=== PATIENT | female | born 1995 | race Caucasian/White ===

== ENCOUNTER 2017-03-11 12:42 | Emergency (ER) | payer OTHER ==
[2017-03-11 12:50] VITALS: BP 113/66; PULSE 65; RESP 19; TEMP 98.8; O2SAT 100
[2017-03-11] MEDS ORDERED: Sodium Chloride 0.9% 1,000 ML IV STA (14:42)
--- NOTE | 2017-03-11 14:55 | ED PDOC ---
HPI: General Adult Time Seen by Provider: 03/11/17 14:08 Chief Complaint (Nursing): Abdominal Pain History Per: Patient Additional Complaint(s): Pt. states for the past 8 days she's had constant vaginal bleeding which worsened over the past 2 days. Reports that bleeding has been heavy and she has been using 4 pads per day. States that she had similar occurrence 2 months ago but had no pain. Further states that her period is usually irregular. States that she was getting her period every 5 months. Denies weakness, hx of anemia, abdominal pain, N/V/D, fever, dysuria, hematuria. Past Medical History Reviewed: Historical Data, Nursing Documentation, Vital Signs Vital Signs: Last Vital Signs Temp 98.8 F 03/11/17 12:47 Pulse 65 03/11/17 12:47 Resp 19 03/11/17 12:47 BP 113/66 03/11/17 12:47 Pulse Ox 100 03/11/17 14:56 - Family History Family History: States: No Known Family Hx - Immunization History Hx Tetanus Toxoid Vaccination: No Hx Influenza Vaccination: No Hx Pneumococcal Vaccination: No - Home Medications Home Medications: Ambulatory Orders Medication Instructions Recorded Albuterol HFA [Ventolin HFA 90 1 puff IH QID PRN #1 puff 11/21/15 mcg/actuation (8 g)] Naproxen [Naprosyn] 1 tab PO BID PRN #25 tab 11/21/15 Oxymetazoline 0.05% [Oxymetazoline 2 puff NS BID PRN #1 bottle 11/21/15 HCl 30 Ml] Norgestrel-Ethinyl Estradiol 1 each PO DAILY #28 tablet 03/11/17 [[id number] Tablet] - Allergies Allergies/Adverse Reactions: Allergies Allergy/AdvReac Type Severity Reaction Status Date / Time No Known Allergies Allergy Verified 11/21/15 10:33 Review of Systems ROS Statement: Except As Marked, All Systems Reviewed And Found Negative Genitourinary Female: Positive for: Vaginal Bleeding, Pelvic Pain Physical Exam - Reviewed Nursing Documentation Reviewed: Yes Vital Signs Reviewed: Yes - Physical Exam Appears: Positive for: Well, Non-toxic, No Acute Distress Head Exam: Positive for: ATRAUMATIC, NORMAL INSPECTION, NORMOCEPHALIC Skin: Positive for: Normal Color, Warm. Negative for: Rash Eye Exam: Positive for: EOMI, Normal appearance, PERRL ENT: Positive for: Normal ENT Inspection Neck: Positive for: Normal, Painless ROM Cardiovascular/Chest: Positive for: Regular Rate, Rhythm Respiratory: Positive for: CNT, Normal Breath Sounds Gastrointestinal/Abdominal: Positive for: Normal Exam, Soft. Negative for: Tenderness (including pelvis) Back: Positive for: Normal Inspection. Negative for: L CVA Tenderness, R CVA Tenderness Extremity: Positive for: Normal ROM Neurologic/Psych: Positive for: Alert, Oriented - Laboratory Results Result Diagrams: 03/11/17 15:05 03/11/17 15:05 - ECG O2 Sat by Pulse Oximetry: 100 - Progress ED Course And Treament: Labs ordered. Toradol 15mg IV given. IV NS bolus given. Pelvic US: 2 cm complex right ovarian cyst with internal echoes common nonspecific. Possible hemorrhagic cyst. Small amount of fluid in cul-de-sac, nonspecific. No additional abnormality. On re-evaluation, pt. reports feeling much better. No tenderness to abd or pelvis. Case d/w Dr. Kuhn who agrees with care and reports that pt. can be prescribed 1 month supply of Lo Ovral. Pt. informed of plan and instructed to f[facility]. Disposition - Clinical Impression Clinical Impression: Dysfunctional uterine bleeding, Ovarian cyst - Patient ED Disposition Is Patient to be Admitted: No - Disposition [facility]errals[facility] [[facility]] [facility] [Outside] Disposition: Routine/Home Disposition Time: 18:30 Condition: STABLE Prescriptions: Norgestrel-Ethinyl Estradiol [[id number] Tablet] 1 each PO DAILY #28 tablet Instructions: Dysfunctional Uterine Bleeding (ED), Ovarian Cyst (ED)
[2017-03-11 15:21] LABS: BASO # 0.1 K/uL (0.0-0.2); EOS # 0.4 K/uL (0.0-0.7); EOS % 7.3 % (0.0-4.0); LYMPH # 2.3 K/uL (1.0-4.3); LYMPH % 40.8 % (20.0-40.0); MEAN CELL VOLUME 80.6 fl (81.0-99.0); MEAN CORPUSCULAR HGB CONC 32.2 g/dL (33.0-37.0); MEAN PLATELET VOLUME 8.4 fl (7.2-11.7); MONO # 0.5 K/uL (0.0-0.8); MONO % 8.2 % (0.0-10.0); NEUT # 2.4 K/uL (1.8-7.0); NEUT % 42.7 % (50.0-75.0); NRBC % 0.1 % (0.0-0.0); RBC 4.23 Mil/uL (3.80-5.20); RED CELL DISTRIBUTION WIDTH 14.1 % (11.5-14.5); WHITE BLOOD COUNT 5.6 K/uL (4.8-10.8)
[2017-03-11 15:41] LABS: ALB/GLOB RATIO 1.3 (1.0-2.1); ALBUMIN 4.1 g/dL (3.5-5.0); ALT/SGPT 29 U/L (9-52); AST/SGOT 34 U/L (14-36); BLOOD UREA NITROGEN 8 mg/dl (7-17); CALCIUM 9.3 mg/dL (8.4-10.2); GFR AFRICAN-AMERICAN > 60; GFR NON-AFRICAN AMERICAN > 60
[2017-03-11 16:12] LABS: SQUAMOUS EPITHIAL 3 /hpf (0-5); URINE BACTERIA FEW (<OCC); URINE BILIRUBIN NEGATIVE (NEGATIVE); URINE BLOOD LARGE (NEGATIVE); URINE CLARITY CLOUDY (Clear); URINE COLOR AMBER (YELLOW); URINE GLUCOSE (UA) NEG (Normal); URINE LEUKOCYTE ESTERASE NEG Leu/uL (Negative); URINE NITRATE NEGATIVE (NEGATIVE); URINE PROTEIN 100 mg/dL (NEGATIVE); URINE UROBILINOGEN 0.2-1.0 mg/dL (0.2-1.0)
[2017-03-11 16:46] LABS: INR 1.2 (0.9-1.2); PARTIAL THROMBOPLASTIN TIME 33.3 Seconds (25.6-37.1); PROTHROMBIN TIME 13.4 Seconds (9.8-13.1)
--- NOTE | 2017-03-11 17:36 | US ---
HISTORY: pelvic pain COMPARISON: None available. TECHNIQUE: Transabdominal FINDINGS: UTERUS: Measures 7.0 x 3.5 x 4.0 cm. Normal in size and appearance. No fibroid or other mass lesion seen. ENDOMETRIUM: Measures 7 mm in diameter. Unremarkable. CERVIX: No cervical abnormality identified. RIGHT OVARY: Measures 3.5 x 2.6 x 3.0 cm. No solid mass. Normal flow. Complex cyst with internal echoes, 2.0 cm. LEFT OVARY: Measures 3.5 x 1.9 x 3.5 cm. No solid mass. Normal flow. Follicular cyst, 1.7 cm. FREE FLUID: Small amount of free fluid noted. OTHER FINDINGS: None. IMPRESSION: 2 cm complex right ovarian cyst with internal echoes common nonspecific. Possible hemorrhagic cyst. Small amount of fluid in cul-de-sac, nonspecific. No additional abnormality.
== END 2017-03-11 19:11 | disposition home or self-care (01) ==
LOC: H.ER 12:42
DX: N83.202 Unspecified ovarian cyst, left side (principal)

== ENCOUNTER 2017-10-04 10:44 | Emergency (ER) | payer MEDICAID, OTHER ==
[2017-10-04 10:59] VITALS: BMI 23.6
[2017-10-04 11:01] VITALS: RESP 16
[2017-10-04] MEDS ORDERED: Sodium Chloride 0.9% 1,000 ML IV STA (12:11)
--- NOTE | 2017-10-04 12:14 | ED PDOC ---
HPI: Abdomen Time Seen by Provider: 10/04/17 12:00 History Per: Patient Onset/Duration Of Symptoms: Days (2) Current Symptoms Are (Timing): Still Present Severity: Mild Pain Scale Rating Of: 2 Location Of Pain/Discomfort: RLQ Quality Of Discomfort: Unable To Describe Associated Symptoms: Diarrhea Exacerbating Factors: None Additional Complaint(s): RLQ abd pain x 2 days assoc with nausea and diarrhea. Denies urinary sxs. No fever. LMP 1 week ago Past Medical History Vital Signs: Last Vital Signs Temp 98.6 F 10/04/17 10:59 Pulse 85 10/04/17 10:59 Resp 16 10/04/17 10:59 BP 115/60 10/04/17 10:59 Pulse Ox 98 10/04/17 12:23 - Medical History PMH: No Chronic Diseases - Family History Family History: States: Unknown Family Hx - Immunization History Hx Tetanus Toxoid Vaccination: No Hx Influenza Vaccination: No Hx Pneumococcal Vaccination: No - Home Medications Home Medications: Ambulatory Orders Medication Instructions Recorded Albuterol HFA [Ventolin HFA 90 1 puff IH QID PRN #1 puff 11/21/15 mcg/actuation (8 g)] Naproxen [Naprosyn] 1 tab PO BID PRN #25 tab 11/21/15 Oxymetazoline 0.05% [Oxymetazoline 2 puff NS BID PRN #1 bottle 11/21/15 HCl 30 Ml] Norgestrel-Ethinyl Estradiol 1 each PO DAILY #28 tablet 03/11/17 [[id number] Tablet] Dicyclomine [Dicyclomine HCl] 10 mg PO Q8 #10 cap 10/04/17 Ondansetron [Zofran] 4 mg PO Q8H #10 tab 10/04/17 - Allergies Allergies/Adverse Reactions: Allergies Allergy/AdvReac Type Severity Reaction Status Date / Time No Known Allergies Allergy Verified 10/04/17 12:20 Review of Systems ROS Statement: Except As Marked, All Systems Reviewed And Found Negative Constitutional: Negative for: Fever Gastrointestinal: Positive for: Nausea, Abdominal Pain, Diarrhea Genitourinary Female: Negative for: Dysuria, Frequency Physical Exam - Reviewed Nursing Documentation Reviewed: Yes Vital Signs Reviewed: Yes - Physical Exam Appears: Positive for: Non-toxic, No Acute Distress Head Exam: Positive for: ATRAUMATIC, NORMAL INSPECTION, NORMOCEPHALIC Skin: Positive for: Normal Color, Warm, DRY Eye Exam: Positive for: EOMI, Normal appearance, PERRL ENT: Positive for: Normal ENT Inspection Neck: Positive for: Normal, Painless ROM Cardiovascular/Chest: Positive for: Regular Rate, Rhythm Respiratory: Positive for: CNT, Normal Breath Sounds Gastrointestinal/Abdominal: Positive for: Bowel Sounds, Soft, Tenderness (Mild tenderness RLQ) Back: Positive for: Normal Inspection. Negative for: L CVA Tenderness, R CVA Tenderness Extremity: Positive for: Normal ROM Neurologic/Psych: Positive for: Alert, Oriented - Laboratory Results Result Diagrams: 10/04/17 13:20 10/04/17 13:20 - ECG O2 Sat by Pulse Oximetry: 98 Disposition - Clinical Impression Clinical Impression: Gastroenteritis - Patient ED Disposition Is Patient to be Admitted: No Counseled Patient/Family Regarding: Studies Performed, Diagnosis, Need For Followup, Rx Given - Disposition Referrals: [facility] [Outside] Disposition: Routine/Home Disposition Time: 16:13 Condition: FAIR Prescriptions: Dicyclomine [Dicyclomine HCl] 10 mg PO Q8 #10 cap Ondansetron [Zofran] 4 mg PO Q8H #10 tab Instructions: Gastroenteritis (ED)
[2017-10-04 13:30] LABS: BASO # 0.1 K/uL (0.0-0.2); BASO % 1.2 % (0.0-2.0); EOS # 0.3 K/uL (0.0-0.7); EOS % 5.2 % (0.0-4.0); LYMPH # 1.3 K/uL (1.0-4.3); LYMPH % 26.4 % (20.0-40.0); MEAN CELL VOLUME 82.1 fl (81.0-99.0); MEAN CORPUSCULAR HEMOGLOBIN 26.3 pg (27.0-31.0); MEAN CORPUSCULAR HGB CONC 32.1 g/dL (33.0-37.0); MEAN PLATELET VOLUME 7.9 fl (7.2-11.7); MONO # 0.4 K/uL (0.0-0.8); MONO % 7.1 % (0.0-10.0); NEUT # 3.1 K/uL (1.8-7.0); NEUT % 60.1 % (50.0-75.0); NRBC % 0.1 % (0.0-0.0); RBC 4.19 Mil/uL (3.80-5.20); RED CELL DISTRIBUTION WIDTH 14.9 % (11.5-14.5); WHITE BLOOD COUNT 5.1 K/uL (4.8-10.8)
[2017-10-04 13:43] LABS: ALB/GLOB RATIO 1.2 (1.0-2.1); ALBUMIN 4.2 g/dL (3.5-5.0); ALT/SGPT 26 U/L (9-52); AST/SGOT 25 U/L (14-36); BLOOD UREA NITROGEN 10 mg/dl (7-17); CALCIUM 9.6 mg/dL (8.4-10.2); GFR AFRICAN-AMERICAN > 60; GFR NON-AFRICAN AMERICAN > 60
[2017-10-04] MEDS ORDERED: Sodium Chloride 0.9% 50 ML IV ONE (15:03)
[2017-10-04] MEDS ORDERED: Iohexol 300 100 ML IJ ONE (15:03)
--- NOTE | 2017-10-04 16:05 | CT ---
PROCEDURE: CT Abdomen and Pelvis with contrast HISTORY: RLQ pain COMPARISON: Pelvis ultrasound examination dated 03/11/2017. TECHNIQUE: Following the intravenous administration of iodinated contrast material, a CT examination of the abdomen and pelvis performed from the domes of the diaphragms to the symphysis pubis with reformatted datasets provided not only axial but also sagittal and coronal planes. Oral contrast was not administered as per referring physician request. Contrast dose: Omnipaque 300, 95 cc Radiation dose: Total exam DLP = 445.96 mGy-cm. This CT exam was performed using one or more of the following dose reduction techniques: Automated exposure control, adjustment of the mA and/or kV according to patient size, and/or use of iterative reconstruction technique. FINDINGS: LOWER THORAX: Unremarkable. LIVER: Mild diffuse fatty infiltration liver suggested how ascites acquired in later arterial phase of imaging. No intrahepatic biliary dilatation identified. GALLBLADDER AND BILE DUCTS: Contracted. No radiodense cholelithiasis associated. PANCREAS: Unremarkable. No gross lesion or ductal dilatation. SPLEEN: Unremarkable. ADRENALS: Unremarkable. No mass. KIDNEYS AND URETERS: Unremarkable. No hydronephrosis. No solid mass. VASCULATURE: Unremarkable. No aortic aneurysm. BOWEL: Unremarkable. No obstruction. No gross mural thickening. APPENDIX: Normal appendix. PERITONEUM: Unremarkable. No free fluid. No free air. LYMPH NODES: Unremarkable. No enlarged lymph nodes. BLADDER: Unremarkable. REPRODUCTIVE: Previously demonstrated complex right adnexal cystic changes on ultrasound noted above are not identified currently. BONES: No acute fracture. OTHER FINDINGS: None. IMPRESSION: Unremarkable contrast enhanced CT of the abdomen and pelvis.
[2017-10-04 16:48] VITALS: BP 105/68; PULSE 65; TEMP 98.7; O2SAT 99
== END 2017-10-04 16:45 | disposition home or self-care (01) ==
LOC: H.ER 10:44
DX: K52.9 Noninfective gastroenteritis and colitis, unspecified (principal)
CPT/HCPCS: 74177; 80053; 81025; 85025; 96360; 96361; 99283; J7040; Q9967